=== PATIENT | male | born 1955 | race Caucasian/White ===

== ENCOUNTER 2019-06-22 09:02 | Day surgery (SDC) | payer OTHER ==
[~2019-06-22] VITALS: Ht 175.3 cm; Wt 88.5 kg
[2019-06-22] MEDS ORDERED: LIDOCAINE 2% 100 MG/5 ML UJET TP ONE ×2 (11:20→11:53)
[2019-06-22] MEDS ORDERED: fentaNYL 0.05 MG/ML VIAL ONE ×2 (11:20→11:53)
[2019-06-22] MEDS ORDERED: MIDAZOLAM 2 MG/2 ML VIAL ONE (11:57)
[2019-06-22] MEDS ORDERED: MIDAZOLAM 2 MG/2 ML VIAL IVP ONE (14:05)
[2019-06-22] MEDS ORDERED: fentaNYL 0.05 MG/ML VIAL IVP ONE (14:05)
== END 2019-06-22 13:05 | disposition home or self-care (01) ==
LOC: MDS 09:02 → MMU 09:03 → MDS 13:05
PROVIDERS: ATTEND Internal Medicine Gastroenterology
DX: Z12.11 Encounter for screening for malignant neoplasm of colon (principal); D12.3 Benign neoplasm of transverse colon; I10 Essential (primary) hypertension; E78.00 Pure hypercholesterolemia, unspecified; E66.3 Overweight; Z87.891 Personal history of nicotine dependence; Z68.28 Body mass index [BMI] 28.0-28.9, adult
CPT/HCPCS: 45385; J2250; J3010